=== PATIENT | female | born 1985 | race Caucasian/White ===

== ENCOUNTER 2022-07-01 10:57 | Emergency (ER) | payer MEDICAID, OTHER ==
[~2022-07-01] VITALS: Ht 157.5 cm; Wt 63.5 kg
[2022-07-01 11:14] VITALS: BP 105/52
[2022-07-01 12:52] LABS: MONOTEST NEGATIVE (NEGATIVE)
[2022-07-01] MEDS ORDERED: BENZ1LOZ58 PO (12:58)
[2022-07-01] MEDS ORDERED: PENI500T PO (12:58)
[2022-07-01] MEDS ORDERED: PENICILLIN G BENZATHINE 2.4 MMU/4 ML ML IM ONE ×2 (13:00→13:21)
[2022-07-01] MEDS ORDERED: FLUC200T PO (13:29)
--- NOTE | 2022-07-01 13:30 | NUR ---
MEDICATED ORDERED. D/C HOME IN STABLE CONDITION.
== END 2022-07-01 13:32 | disposition home or self-care (01) ==
LOC: ER 11:03
DX: J02.9 Acute pharyngitis, unspecified (principal); Z79.899 Other long term (current) drug therapy
CPT/HCPCS: 99283; 96372; 86308; 36415; J0558

== ENCOUNTER 2022-07-24 14:05 | Emergency (ER) | payer OTHER ==
[~2022-07-24] VITALS: Ht 157.5 cm; Wt 63.5 kg
[~2022-07-24 14:05] MED LIST: BENZ1LOZ58 PO; FLUC200T PO; PENI500T PO
--- NOTE | 2022-07-24 14:35 | NUR ---
abdominal pain, radiates to the back x 7 days; 7/10 in severity pain gets worse after eating
[2022-07-24 14:54] LABS: BILIRUBIN,URINE NEGATIVE (NEGATIVE); COLOR,URINE YELLOW (YELLOW); LEUKOCYTE ESTERASE ,URINE NEGATIVE (NEGATIVE); NITRITE, URINE NEGATIVE (NEGATIVE); PH,URINE 6.5 (5.0-8.0); PROTEIN,URINE NEGATIVE (NEGATIVE); UGLUCOSE NEGATIVE (NEGATIVE); UROBILINOGEN,URINE 0.2 EU/dL (0.2)
--- NOTE | 2022-07-24 14:55 | NUR ---
urine sample obtained sent to lab
--- NOTE | 2022-07-24 14:55 | NUR ---
blood sample obtained sent to lab
--- NOTE | 2022-07-24 14:55 | NUR ---
established iv line 18 g right ac ,
[2022-07-24] MEDS ORDERED: KETOROLAC TROMETHAMINE 15 MG/ML VIAL ONE (14:59)
[2022-07-24] MEDS ORDERED: KETOROLAC TROMETHAMINE INJ 30 MG/ML VIAL IV ONE (15:00)
--- NOTE | 2022-07-24 15:08 | NUR ---
patient signed the waiver
[2022-07-24] MEDS ORDERED: IV NS 0.9% 250 ML IV ONE (15:14)
[2022-07-24] MEDS ORDERED: IOHEXOL-300 100 ML VIAL IV ONE (15:14)
[2022-07-24] MEDS ORDERED: CT SWABBABLE VALVE TRANS SET 1 EA INFUS.SET MC ONE (15:14)
[2022-07-24 15:15] LABS: BASOPHILS % (AUTO) 0.6 % (0.0-2.0); EOSINOPHILS % (AUTO) 3.9 % (0.0-6.0); HEMATOCRIT 41 % (33-45); HEMOGLOBIN 13.3 g/dL (11.5-14.8); LYMPHOCYTES # (AUTO) 2.2 K/uL (0.8-4.8); LYMPHOCYTES % (AUTO) 31.1 % (20.0-44.0); MEAN CORPUSCULAR HGB CONC 33 g/dl (31.0-36.0); MEAN CORPUSCULAR VOLUME 85 fL (82-100); MONOCYTES # (AUTO) 0.5 K/uL (0.1-1.30); MONOCYTES % (AUTO) 6.9 % (2.0-12.0); NEUTROPHILS # (AUTO) 4.2 K/uL (1.8-8.9); NEUTROPHILS % (AUTO) 57.5 % (43.0-81.0); PLATELET COUNT (AUTO) 299 K/uL (150-450); RED BLOOD CELL COUNT(AUTO) 4.75 MIL/uL (4.0-5.2); WHITE BLOOD COUNT (AUTO) 7.2 K/uL (4.3-11.0)
[2022-07-24 15:46] LABS: ALBUMIN 3.7 g/dL (3.4-5.0); BILIRUBIN,DIRECT 0.1 mg/dL (0.0-0.2); BILIRUBIN,TOTAL 0.2 mg/dL (0.2-1.0); CALCIUM, SERUM 8.7 mg/dL (8.5-10.1); TOTAL PROTEIN, SERUM 7.3 g/dL (6.4-8.2)
--- NOTE | 2022-07-24 16:20 | NUR ---
updated with plan of care. Pt in NO obvious distress states pain"tolerable"
[2022-07-24] MEDS ORDERED: DICY10CA37 PO (16:29)
[2022-07-24] MEDS ORDERED: KETO10TA2 PO (16:29)
--- NOTE | 2022-07-24 16:50 | NUR ---
Patient discharged to home in stable condition. Written and verbal after care instructions given. Patient verbalizes understanding of instruction.
--- NOTE | 2022-07-24 16:50 | NUR ---
IV removed. Catheter intact and site benign. Pressure and 4x4 applied to site. No bleeding noted.
[2022-07-24 16:51] VITALS: BP 111/61
== END 2022-07-24 16:51 | disposition home or self-care (01) ==
LOC: ER 14:07
DX: R10.32 Left lower quadrant pain (principal); Z79.899 Other long term (current) drug therapy
CPT/HCPCS: 99285; 74177; 96374; 85025; 80048; 83690; 80076; 84703; 81003; 36415; J7050; Q9967; J1885

== ENCOUNTER → 2022-10-09 | Emergency (ER) | payer OTHER ==
[~2022-10-09] VITALS: Ht 157.5 cm; Wt 65.8 kg
[~2022-10-09] MED LIST changes: +DICY10CA13 PO; +DICY10CA37 PO; +KETO10TA2 PO
[2022-10-09 16:56] VITALS: BP 134/66
== END | disposition home or self-care (01) ==
LOC: ER 16:59
DX: R10.9 Unspecified abdominal pain (principal); G89.29 Other chronic pain; Z79.899 Other long term (current) drug therapy

== ENCOUNTER 2023-08-13 19:43 | Emergency (ER) | payer OTHER ==
[~2023-08-13] VITALS: Ht 157.5 cm; Wt 68.0 kg
[2023-08-13 21:17] VITALS: BP 124/85; TEMP 98.1
[2023-08-13] MEDS ORDERED: FLUC150T5 PO (22:14)
[2023-08-13] MEDS ORDERED: IBUP-1955 PO (22:14)
[2023-08-13 22:15] LABS: PREGNANCY TEST URINE QUAL NEGATIVE (NEGATIVE)
[2023-08-13] MEDS ORDERED: FLUCONAZOLE (100 MG) 100 MG TABLET ONE (22:32)
[2023-08-13] MEDS ORDERED: IBUPROFEN 600 MG TABLET ONE (22:32)
[2023-08-13] MEDS: IBUPROFEN 600 MG TABLET PO ONE (22:37)
[2023-08-13] MEDS: FLUCONAZOLE (100 MG) 100 MG TABLET PO ONE (22:37)
[2023-08-13 22:52] VITALS: O2SAT 97
== END 2023-08-13 22:53 | disposition home or self-care (01) ==
LOC: ER 19:45
DX: N89.8 Other specified noninflammatory disorders of vagina (principal); Z79.899 Other long term (current) drug therapy
CPT/HCPCS: 84703-TC

== ENCOUNTER 2024-07-14 00:30 | Emergency (ER) | payer OTHER ==
[~2024-07-14] VITALS: Ht 157.5 cm; Wt 65.8 kg
[~2024-07-14 00:30] MED LIST changes: +FLUC150T5 PO; +IBUP-1955 PO
[2024-07-14] MEDS ORDERED: IBUPROFEN 600 MG TABLET ONE (03:19)
[2024-07-14] MEDS ORDERED: ACETAMINOPHEN ES 500 MG TABLET ONE (03:19)
[2024-07-14 03:20] LABS: APPEARANCE,URINE CLEAR (CLEAR); COLOR,URINE ORANGE (YELLOW)
[2024-07-14] MEDS: ACETAMINOPHEN ES 500 MG TABLET PO ONE (03:21)
[2024-07-14] MEDS: IBUPROFEN 600 MG TABLET PO ONE (03:21)
[2024-07-14 03:23] LABS: RBC,URINE 0-2 /HPF (0-2)
[2024-07-14 03:24] LABS: BACTERIA,URINE Rare /HPF (None Seen); SQUAMOUS EPITHELIAL CELL,UR Moderate /HPF (None Seen)
[2024-07-14] MEDS ORDERED: CEFP200T14 PO (04:09)
[2024-07-14] MEDS ORDERED: ACET-73 PO (04:09)
[2024-07-14 04:26] VITALS: BP 117/47; TEMP 98.4; O2SAT 99
[2024-07-14] MEDS ORDERED: FLUC150T PO (04:27)
== END 2024-07-14 04:39 | disposition home or self-care (01) ==
LOC: ER 00:37
DX: N39.0 Urinary tract infection, site not specified (principal); R10.9 Unspecified abdominal pain; R30.0 Dysuria; R35.0 Frequency of micturition
CPT/HCPCS: 81001

== ENCOUNTER 2024-07-16 20:02 | Emergency (ER) | payer OTHER ==
[~2024-07-16] VITALS: Ht 160 cm; Wt 61.2 kg
[~2024-07-16 20:02] MED LIST changes: +ACET-73 PO; +CEFP200T14 PO; +FLUC150T PO
[2024-07-16 20:37] VITALS: BP 103/63; TEMP 98.4; O2SAT 99
[2024-07-16] MEDS ORDERED: POLY10DR3 LEFTEYE (21:04)
== END 2024-07-16 22:37 | disposition home or self-care (01) ==
LOC: ER 20:21
DX: H10.32 Unspecified acute conjunctivitis, left eye (principal); H53.142 Visual discomfort, left eye; H57.12 Ocular pain, left eye